=== PATIENT | female | born 1980 | race Caucasian/White ===

== ENCOUNTER 2022-02-02 10:15 | Inpatient (IN) | payer OTHER ==
[~2022-02-02] VITALS: Ht 160 cm; Wt 55.3 kg
[~2022-02-02 10:15] MED LIST: SYNTHROID137 MCG
[2022-02-02] MEDS ORDERED: SYNTHROID125 MCG PO (12:31)
[2022-02-02] MEDS ORDERED: AVIANE-28 TABL1 EACH PO (12:32)
[2022-02-02] MEDS ORDERED: [UNRECOGNIZED DRUG - OTHER] PO (12:32)
[2022-02-04] MEDS ORDERED: ACIPHEX20 MG PO (09:32)
== END 2022-02-05 14:25 | disposition home or self-care (01) | DRG 743 ==
LOC: O/R 02-03 07:07 → OB/GYN 02-03 07:07 → SURH 02-04 10:15 → OB/GYN 02-05 14:25
PROVIDERS: ADMIT Specialist; ATTEND Specialist
PROC: 0UT50ZZ Resection of Right Fallopian Tube, Open Approach (ICD-10-PCS; 2022-02-03)
PROC: 0UT00ZZ Resection of Right Ovary, Open Approach (ICD-10-PCS; 2022-02-03)
PROC: 0UT90ZZ Resection of Uterus, Open Approach (ICD-10-PCS; principal; 2022-02-03 08:00)
DX: D25.1 Intramural leiomyoma of uterus (principal); N72 Inflammatory disease of cervix uteri; N80.0 Endometriosis of uterus; N80.1 Endometriosis of ovary; Z20.822 Contact with and (suspected) exposure to COVID-19

== ENCOUNTER 2022-03-10 10:09 | Emergency (ER) | payer OTHER ==
[~2022-03-10] VITALS: Ht 160 cm; Wt 54.4 kg
[~2022-03-10 10:09] MED LIST changes: +ACIPHEX20 MG PO; +AVIANE-28 TABL1 EACH PO; +SYNTHROID125 MCG PO; +[UNRECOGNIZED DRUG - OTHER] PO
== END 2022-03-10 14:19 | disposition home or self-care (01) ==
LOC: ER 10:09
DX: N93.9 Abnormal uterine and vaginal bleeding, unspecified (principal); Z90.710 Acquired absence of both cervix and uterus